=== PATIENT | male | born 1975 | race Caucasian/White ===

== ENCOUNTER 2020-07-28 06:30 | Observation (INO) ==
[2020-07-28] MEDS ORDERED: CeFAZolin Syr 3,000MG/30 ML 3,000 MG/30 ML SYRINGE IVPB ONE (06:58)
[2020-07-28] MEDS ORDERED: Ringers Solution, Lactated 1,000 ML IVC SCH ×2 (07:00→14:42)
[2020-07-28] MEDS ORDERED: Lidocaine -MPF 2% 2 ML VIAL ONE (07:12)
[2020-07-28] MEDS ORDERED: Ondansetron 4 MG/2 ML VIAL ONE ×2 (07:12→07:13)
[2020-07-28] MEDS ORDERED: *HR* FentaNYL (PF) 100 MCG/2 ML VIAL ONE (07:12)
[2020-07-28] MEDS ORDERED: *HR* Succinylcholine 200 MG/10 ML VIAL IVP ONE (07:12)
[2020-07-28] MEDS ORDERED: *HR* Propofol 200 MG/20 ML VIAL IVP ONE (07:13)
[2020-07-28] MEDS ORDERED: *HR* Midazolam HCl 2 MG/2 ML VIAL ONE (07:13)
[2020-07-28] MEDS ORDERED: Lidocaine -MPF 4% 5 ML AMPUL ONE (07:20)
[2020-07-28] MEDS ORDERED: Dexmedetomidine HCl 0 MCG/0 ML MLS IVC ONE (07:32)
[2020-07-28] MEDS ORDERED: *HR* HYDROmorphone 2 MG TABLET PO PRN (07:45)
[2020-07-28] MEDS ORDERED: Bacitracin 50,000 UNIT, Polymyxin B Sulfate 500,000 UNIT, Sodium Chloride IRRigation 1,... IR ONE (07:45)
[2020-07-28] MEDS ORDERED: Famotidine 20 MG/2 ML VIAL IVP ONE (07:45)
[2020-07-28] MEDS ORDERED: *HR* Labetalol 20 MG/4 ML SYRINGE IVP PRN (07:45)
[2020-07-28] MEDS ORDERED: Pregabalin 75 MG CAPSULE PO ONE (07:45)
[2020-07-28] MEDS ORDERED: Acetaminophen IV 1,000 MG/100 ML INFUS..BTL IVPB ONE (07:45)
[2020-07-28] MEDS ORDERED: *HR* PHENYLEPHRINE 1,000 MCG/10 ML SYRINGE IVP ONE ×3 (08:06→10:56)
[2020-07-28] MEDS ORDERED: *HR* Rocuronium Bromide 50 MG/5 ML VIAL ONE (08:15)
[2020-07-28] MEDS ORDERED: *HR* Vasopressin 20 UNIT/ML VIAL ONE (08:27)
[2020-07-28] MEDS ORDERED: Dexamethasone 4 MG/ML VIAL ONE (08:50)
[2020-07-28] MEDS ORDERED: *HR* Phenylephrine 10 MG/ML VIAL ONE (09:01)
[2020-07-28] MEDS ORDERED: Albumin Human 5% 25.0 GM/500 ML IV.SOLN ONE (09:25)
[2020-07-28] MEDS ORDERED: Hydrocortisone Sodium Succ 100 MG/2 ML VIAL ONE (09:25)
[2020-07-28] MEDS ORDERED: *HR* HYDROMORPHONE 2 MG/ML VIAL ONE (10:20)
[2020-07-28] MEDS: *HR* HYDROmorphone (PF) 1 MG/ML SYRINGE IVP PRN ×4 (12:08→12:44)
[2020-07-28] MEDS: *HR* OxyCODONE Immed Rel 5 MG TABLET PO PRN ×4 (12:20→20:58)
[2020-07-28] MEDS ORDERED: Naloxone 0.4 MG/ML INJ IVP PRN (14:42)
[2020-07-28] MEDS ORDERED: Acetaminophen 325 MG TABLET PO PRN (14:42)
[2020-07-28] MEDS ORDERED: Ondansetron 4 MG/2 ML VIAL IVP PRN (14:42)
[2020-07-28] MEDS ORDERED: *HR* HYDROcodone/Acet 5/325 mg TABLET PO PRN (14:42)
[2020-07-28] MEDS: CeFAZolin 2 GM/120 ML BAG IVPB SCH ×2 (16:17→23:11)
[2020-07-28] MEDS ORDERED: Ketorolac 30 MG/ML VIAL IVP ONE (18:43)
[2020-07-28] MEDS ORDERED: Acetaminophen IV 1,000 MG/100 ML INFUS..BTL IVPB PRN (18:47)
[2020-07-29] MEDS ORDERED: Acetaminophen IV 1,000 MG/100 ML INFUS..BTL IVPB SCH
[2020-07-29] MEDS: *HR* OxyCODONE Immed Rel 5 MG TABLET PO PRN ×6 (01:32→23:42)
[2020-07-29] MEDS: hydroCHLOROthiazide 25 MG TABLET PO SCH (08:38)
[2020-07-29] MEDS ORDERED: *HR* LORazepam 2 MG/ML VIAL IVP PRN ×3 (12:28)
[2020-07-29] MEDS: tiZANidine 4 MG TABLET PO PRN (12:53)
[2020-07-29] MEDS: Folic Acid 1 MG TABLET PO SCH (12:53)
[2020-07-29] MEDS: Menthol 9.1 MG LOZENGE PO PRN ×2 (13:16→23:42)
[2020-07-29] MEDS: *HR* HYDROcodone/Acet 5/325 mg TABLET PO PRN (17:26)
[2020-07-30] MEDS: *HR* HYDROcodone/Acet 5/325 mg TABLET PO PRN ×3 (02:14→20:36)
[2020-07-30] MEDS: *HR* OxyCODONE Immed Rel 5 MG TABLET PO PRN ×5 (03:57→22:01)
[2020-07-30] MEDS: Folic Acid 1 MG TABLET PO SCH (08:10)
[2020-07-30] MEDS: hydroCHLOROthiazide 25 MG TABLET PO SCH (08:10)
[2020-07-30] MEDS: Thiamine (B-1) 100 MG TABLET PO SCH (08:10)
[2020-07-30] MEDS: tiZANidine 4 MG TABLET PO PRN ×2 (10:55→20:37)
[2020-07-31] MEDS: *HR* OxyCODONE Immed Rel 5 MG TABLET PO PRN ×3 (02:19→12:19)
[2020-07-31] MEDS: tiZANidine 4 MG TABLET PO PRN ×2 (06:19→12:19)
[2020-07-31 07:09] VITALS: BP 119/78
[2020-07-31] MEDS: Thiamine (B-1) 100 MG TABLET PO SCH (08:56)
[2020-07-31] MEDS: hydroCHLOROthiazide 25 MG TABLET PO SCH (08:56)
[2020-07-31] MEDS: Folic Acid 1 MG TABLET PO SCH (08:56)
== END 2020-07-31 15:05 | disposition home or self-care (01) ==
LOC: 3NENU 06:30 → SAMDAY 06:30 → 3NENU 13:32
PROVIDERS: ADMIT Orthopaedic Surgery Orthopaedic Surgery of the Spine; ATTEND Orthopaedic Surgery Orthopaedic Surgery of the Spine